=== PATIENT | male | born 1945 | race Caucasian/White ===

== ENCOUNTER 2017-02-01 10:34 | Emergency (ER) | payer OTHER ==
[~2017-02-01] VITALS: Ht 180.3 cm; Wt 88.5 kg
[~2017-02-01 10:34] MED LIST: ALEVE220 MG PO; CLARITIN10 MG PO; CO Q1060 MG PO; EFFEXOR75 MG PO; FISH OIL 1,001000 M2 PO; GLUCOSAMINE HC500 MG PO; HYDROCODONE-AP1 EAC6 PO
[2017-02-01] MEDS ORDERED: ASPIR 8181 MG PO (10:45)
[2017-02-01] MEDS ORDERED: XANAX 0.25 MG0.25 MG PO (10:45)
[2017-02-01] MEDS ORDERED: CO Q-10100 MG PO (10:45)
[2017-02-01] MEDS ORDERED: UNICOMPLEX M TA1 TA1 PO (10:46)
[2017-02-01 10:55] LABS: ABSOLUTE NEUTROPHILS 7.7 thou/uL (1.4-8.2); BASOPHILS 0.5 % (0.0-2.0); EOSINOPHILS 1.7 % (0.0-3.0); HEMATOCRIT 40.9 % (42.0-52.0); HEMOGLOBIN 14.2 gm/dL (14.0-18.0); MCH 31.3 pg (26.0-34.0); MCHC 34.7 g/dL (28.0-37.0); MCV 90.1 fL (80.0-100.0); MONOCYTES 9.5 % (1.0-8.0); PLATELET COUNT 144 thou/uL (150-400); POLYS 68.3 % (36.0-66.0); RBC 4.54 mil/uL (4.50-6.00); WBC 11.3 thou/uL (4.0-11.0)
[2017-02-01 10:58] LABS: MANUAL DIFF NO
[2017-02-01 11:05] LABS: CALCIUM 9.1 mg/dL (8.5-10.1); POTASSIUM 4.4 mmol/L (3.5-5.1)
[2017-02-01 11:10] LABS: ALBUMIN 4.3 g/dL (3.4-5.0); TOTAL BILIRUBIN 1.6 mg/dL (<0.1-1.0); TOTAL PROTEIN 7.1 g/dL (6.4-8.2)
[2017-02-01 11:47] LABS: URINE BILIRUBIN NEGATIVE (Negative); URINE BLOOD NEGATIVE (Negative); URINE COLOR YELLOW; URINE GLUCOSE-RANDOM* NEGATIVE (Negative); URINE KETONES NEGATIVE (Negative); URINE LEUKOCYTES-REFLEX NEGATIVE (Negative); URINE PROTEIN (DIPSTICK) NEGATIVE (Negative); URINE SPECIFIC GRAVITY <= 1.005 (1.003-1.035); URINE UROBILINOGEN 0.2 E.U./dl (0.2-1.0)
[2017-02-01] MEDS ORDERED: CIPROFLOXACIN500 M1 PO (12:47)
[2017-02-01] MEDS ORDERED: FLAGYL500 MG PO (12:47)
[2017-02-01] MEDS ORDERED: NORCO 5-325 TA1 EACH PO (12:48)
[2017-02-01] MEDS ORDERED: ZOFRAN ODT4 MG PO (12:48)
[2017-02-01] MEDS ORDERED: SENNA-DOCUSATE1 EACH PO (12:48)
== END 2017-02-01 13:57 | disposition home or self-care (01) ==
LOC: ER 10:34
PROVIDERS: Emergency Medicine
DX: K57.92 Diverticulitis of intestine, part unspecified, without perforation or abscess without bleeding (principal)

== ENCOUNTER → 2020-11-15 | Outpatient (CLI) | payer OTHER ==
[~2020-11-15] VITALS: Ht 180.3 cm; Wt 83.9 kg
[~2020-11-15] MED LIST changes: +ASA81BEC PO; +ASPIR 8181 MG PO; +CIPROFLOXACIN500 M1 PO; +CO Q-10100 MG PO; +CO Q-10200 MG PO; +FLAGYL500 MG PO; +NORCO 5-325 TA1 EACH PO; +OMEPRAZOLE 20 M20 M1 PO; +SENNA LAXATIVE25 MG PO; +SENNA-DOCUSATE1 EACH PO; +SERTRALINE HCL100 MG PO; +UNICOMPLEX M TA1 TA1 PO; +XANAX 0.25 MG0.25 MG PO; +ZOFRAN ODT4 MG PO
[2020-11-15 09:52] VITALS: BP 156/79
--- NOTE | 2020-11-15 10:47 | NUR ---
Pain Clinic Assessment: 1. History of Osteoarthritis: Not Applicable History of Rheumatoid Arthritis: Not Applicable 2. Height: 5 ft. 11 in. 180.3 cm. Weight: 185.0 lb. oz. 83.916 kg. Patient's BMI: 25.8 3. Vital Signs: BP: 156/79 Pulse: 52 Resp: 14 Temp: 02 Sat: 99 ECG Mon: 4. Pain Intensity: 9 5. Fall Risk: Dizziness: N Needs help standing or walking: N Fallen in the last 3 months: N Fall risk comments: 6. Patient on Blood Thinner: None 7. History of Hypertension: N 8. Opioid Therapy greater than 6 weeks: N Opiate Contract Signed: 9. Risk Assessment Tool Provided: LOW-1 10. Functional Assessment Tool: 53/70 11. Recreational Drug Use: Never Drug Type: Tobacco Use: Never Smoker Tobacco Type: Amount or Packs/day: How Many Years: Alcohol Use: No Frequency: Quant:
--- NOTE | 2020-11-16 08:04 | HPC ---
[address] [place] [address] PAIN MANAGEMENT CONSULTATION Name: PIPER PEREZ Room #: REG [facility].#: [id number] Admission: 11/15/20 Attend Phys: Johnny Flores DO Discharge: Date of : 47 Report #: [id number] THIS REPORT FOR: cc: Clinton Steele MD,Johnny Brand MD, DO ~ cc: Carlos Steele MD DATE OF SERVICE: 11/15/2020 CHIEF COMPLAINT: Low back pain, right lower extremity pain with paresthesias. HISTORY OF PRESENT ILLNESS: As you know, the patient is a 75-year-old male, who reports acute onset of low back pain, right lower extremity pain with paresthesias that began after an injury while warming up for a baseball game. The patient states he was practicing pitching, getting ready to go onto the field. When he was throwing a ball with a catcher in the bowl pin, he states that he fell over a 2-foot embankment, causing instantaneous back pain, right hip and rib pain. He did not seek evaluation initially, believing it was more of a bruising injury. He has tried [id number] medications, stretching, chiropractic manipulation and massage, all of which provided no benefit. He finally sought evaluation through his primary care physician, who evaluated the patient and determined symptoms may be related to lumbar radiculopathy and the patient was then advised to utilize rest, relaxation and stretching techniques further. When this did not improve, the patient was referred to our clinic. He comes to us today without imaging studies. The patient describes his pain today as continuous. He describes aching and sharp as the sensations. He places current pain score 9/10. Daily average at 9/10. Worst pain has been 10/10. The patient states that moving quickly exacerbate symptoms. TENS unit and massage therapy provided only transient pain improvement. He has been referred to our service and discussed treatment options for suspected lumbar radiculopathy. PAST MEDICAL HISTORY: Seasonal allergies, anxiety disorder, and gastroesophageal reflux disease. PAST SURGICAL HISTORY: Left knee surgery x3. SOCIAL HISTORY: The patient denies tobacco, IV or illicit drug use. Denies any chronic alcohol use. He is retired, retired about a 4 and half years ago, not receiving workmen's compensation nor is he trying to obtain disability benefits. He is not in litigation in regards to pain. He is unaccompanied at today's visit. REVIEW OF SYSTEMS: Positive for wearing corrective eyewear, hearing loss with tinnitus, sexual difficulty, depression, low back pain, right lower extremity [address] [address] PAIN MANAGEMENT CONSULTATION Name: PIPER PEREZ Room #: REG [facility]#: [id number] Admission: 11/15/20 Attend Phys: Johnny Flores DO Discharge: Date of : 47 Report #: [id number] pain with paresthesias. All other review of systems negative per 12-point review of systems other than those listed in history of present illness. Pain impact score 53/70, severe interference of daily activities secondary to pain. IMAGING: There is no imaging available. ALLERGIES: No known drug allergies. CURRENT MEDICATIONS: Aspirin 81 mg per day, omeprazole 20 mg per day, coenzyme Q-10 200 mg once a day, sertraline 100 mg per day, hydrocodone/acetaminophen 5/325 one tab every 8 hours p.r.n. pain, multivitamin 1 tab per day, alprazolam 0.25 mg once a day, Confluence 3 fish oil 1 tab per day, loratadine 10 mg per day. PQRS: The patient has known arthritic changes of the lumbar spine. No rheumatoid arthritis. He is placing current pain score 9/10. He is not a fall risk, but did have this fall in November. He is not on blood thinners nor is he treated for hypertension. He is not on any chronic opioids, has a low opioid addiction potential. Pain impact is 53/70, severe interference of daily activities secondary to pain. PHYSICAL EXAMINATION: VITAL SIGNS: Blood pressure 156/79, pulse of 52, respiratory rate 14 and unlabored. The patient is 99% on room air. Height 5 feet 11 inches tall, weight 185 pounds, BMI calculated 25.8. GENERAL: A well-developed, well-nourished, well-hydrated 75-year-old male appearing stated age, pain is rated today at 9/10. HEENT: Normocephalic, atraumatic. Pupils equal, round and responsive. EXTREMITIES: Show no clubbing, no cyanosis, no edema. MUSCULOSKELETAL: Lower extremity strength equal and symmetrical 5/5. Muscle bulk and tone is equal and symmetrical comparing lower extremities. Seated straight leg raising negative. Supine straight leg raising negative. Fabere's test is negative. Modified Gaenslen's positive for axial low back pain. Ankle clonus negative. Babinski is negative. Gait is normal. ASSESSMENT: 1. Recurrent lumbar radiculopathy. 2. Lumbosacral spondylosis with radiculopathy. 3. Lumbar degeneration. PLAN: 1. Based on today's physical exam and history the patient was provided, the description the patient uses in regards to pain as well as location of symptoms, it would appear he is suffering from recurrent lumbar radicular symptoms. The patient apparently had symptoms like this in the past, underwent an epidural [facility] [address] [place] [address] PAIN MANAGEMENT CONSULTATION Name: PIPER PEREZ Room #: REG [facility] Juan Luis#: [id number] Admission: 11/15/20 Attend Phys: Johnny Flores DO Discharge: Date of : 46 Report #: [id number] injection with good benefit. He states the last time he was treated for something like this was in 2016. He has been doing well until recently after the fall in November. He has been referred to our clinic to discuss options for treatment. The following was discussed with the patient today. We discussed physical therapy, stretching exercises and core strengthening as a treatment approach. We discussed suggestions and treatment to include amitriptyline, nortriptyline, Cymbalta, Lyrica and gabapentin. These would all be provided with suggestions of the primary care team to initiate. We also discussed lumbar epidural injections under fluoroscopic guidance, spinal cord stimulator therapy and surgical options. After reviewing risks and benefits of all proposed treatment options, the patient chose to begin with a lumbar epidural injection under fluoroscopic guidance. 2. The patient was advised the risks and the benefits of a lumbar epidural injection. These risks include but are not necessarily limited to bleeding, bruising, infection, worsening pain, no relief of pain, also risk of temporary or permanent muscle weakness, temporary or permanent nerve damage, possible paralysis, post-dural puncture headache and . The patient states understood and wished to proceed. 3. No medication changes made at today's visit. The patient will continue current medical therapy as prior prescribed. 4. The patient will return to our clinic in 30 days. Discuss the possibility of undergoing next in the series of epidural injections if necessary. PROCEDURE NOTE DESCRIPTION OF PROCEDURE: L5-S1 right paramedian epidural steroid injection under fluoroscopic guidance. This is the first procedure of the first series that the patient is undergoing. After obtaining written consent, the patient was taken back to the fluoroscopy suite, placed in a prone position with pillow under the abdomen to decrease lumbar lordosis. The skin overlying the lumbosacral area was then prepped and draped in aseptic fashion. The L5-S1 vertebral interspace was then identified by AP fluoroscopy. The skin and subcutaneous tissue overlying the target site of injection was anesthetized with 3 mL 1% lidocaine. A 20-gauge 3-1/2 inch. Tuohy needle was then advanced under fluoroscopic guidance towards the epidural space using a right paramedian approach. The epidural space was identified using loss of resistance to air technique. After negative aspiration for heme or cerebrospinal fluid, a total of 1 mL of Omnipaque was injected. A lumbar epidurogram was confirmed using both AP and lateral fluoroscopy. After negative aspiration for heme or cerebrospinal fluid, 5 mL of a solution containing 2 mL 40 mg per mL 80 mg total triamcinolone along with 3 mL of lidocaine 1% was injected in increments. Contrast spread was noted in the posterior epidural space. The needle was then retracted approximately [address] [address] PAIN MANAGEMENT CONSULTATION Name: ANAPIPER Stefany Room #: REG [facility]#: [id number] Admission: 11/15/20 Attend Phys: Johnny Flores DO Discharge: Date of : 46 Report #: [id number] and needle tract flushed with 1 mL of 1% lidocaine. Needle was then removed. There were no apparent sensory or motor deficits in the lower extremity following the procedure. A sterile bandage was placed over the injection site. The heart rate, pulse, oximetry and blood pressure were continuously monitored after the procedure. There were no apparent complications. The patient tolerated the procedure well and was carefully escorted to the recovery room in stable condition. There were no apparent complications. After meeting discharge criteria, the patient was then discharged home. <ELECTRONICALLY SIGNED> By: Johnny Flores DO 11/16/20 [id number] Johnny Flores DO /nt
== END | disposition home or self-care (01) ==
LOC: PAIN 07:18
PROVIDERS: ATTEND Anesthesiology Pain Medicine
DX: M51.16 Intervertebral disc disorders with radiculopathy, lumbar region (principal); M47.27 Other spondylosis with radiculopathy, lumbosacral region; I10 Essential (primary) hypertension; F41.9 Anxiety disorder, unspecified; K21.9 Gastro-esophageal reflux disease without esophagitis; Z98.890 Other specified postprocedural states; Z79.899 Other long term (current) drug therapy; Z79.82 Long term (current) use of aspirin

== ENCOUNTER → 2021-03-14 | Outpatient (CLI) | payer OTHER ==
[~2021-03-14] VITALS: Ht 180.3 cm; Wt 80.7 kg
[2021-03-14 09:55] VITALS: BP 145/76
--- NOTE | 2021-03-14 10:12 | NUR ---
Pain Clinic Assessment: 1. History of Osteoarthritis: Not Applicable History of Rheumatoid Arthritis: Not Applicable 2. Height: 5 ft. 11 in. 180.3 cm. Weight: 178.0 lb. oz. 80.740 kg. Patient's BMI: 24.8 3. Vital Signs: BP: 145/76 Pulse: 80 Resp: 14 Temp: 02 Sat: 100 ECG Mon: 4. Pain Intensity: 9 5. Fall Risk: Dizziness: N Needs help standing or walking: N Fallen in the last 3 months: N Fall risk comments: 6. Patient on Blood Thinner: None 7. History of Hypertension: N 8. Opioid Therapy greater than 6 weeks: N Opiate Contract Signed: 9. Risk Assessment Tool Provided: LOW-1 10. Functional Assessment Tool: 53/70 11. Recreational Drug Use: Never Drug Type: Tobacco Use: Never Smoker Tobacco Type: Amount or Packs/day: How Many Years: Alcohol Use: No Frequency: Quant:
--- NOTE | 2021-03-14 15:06 | HPC ---
[address] [address] PAIN MANAGEMENT CONSULTATION Name: PIPER PEREZ Room #: REG [facility].#: [id number] Admission: 03/14/21 Attend Phys: Johnny Flores DO Discharge: Date of : 47 Report #: [id number] THIS REPORT FOR: cc: Clinton Steele MD,Johnny Brand MD, DO ~ cc: Carlos Steele MD DATE OF SERVICE: 03/14/2021 CHIEF COMPLAINT: Low back pain, right lower extremity pain with paresthesias. HISTORY OF PRESENT ILLNESS: As you know, the patient is a very pleasant 76-year-old male who was referred to our clinic after acute low back pain, right lower extremity pain began after an injury while warming up for a baseball game. He trialed conservative treatment, which failed to provide benefit. He sought evaluation through his primary care physician, Dr. Clinton Steele, who then referred the patient on for imaging. The findings were such the patient was then referred to our clinic to discuss interventional treatment options before considering surgical options. The patient was seen in consultation 11/15/2020 where he underwent a lumbar epidural injection under fluoroscopic guidance. He states that injection provided improvement in symptoms of greater than 90% until just recently where his symptoms returned. He states he was up to bat when he swang at a pitch, he then felt instantaneous low back pain and right lower extremity pain radiating all the way down to his foot. Pain continued to progress. He trialed conservative treatment, rest, relaxation, but did not notice much in the way of improvement. He made today's appointment to discuss the next in the series of epidural injections to address his ongoing pain that he rates at 9/10 involving the low back, right buttock and radiating down the leg. He has had no changes in medication management since our last visit that would preclude him from undergoing the next in the series of epidural injections if deemed necessary. ALLERGIES: No known drug allergies. CURRENT MEDICATIONS: Aspirin 81 mg per day, omeprazole 20 mg per day, coenzyme Q10 200 mg once a day, sertraline 100 mg once a day, multivitamin 1 tab per day, alprazolam 0.25 mg p.r.n., omega-3 fish oil 1 tab per day, loratadine 10 mg p.r.n. SOCIAL HISTORY: The patient denies tobacco. Denies IV or illicit drug use. Admits to occasional alcohol beverage. He is retired, retired about 4-1/2 years ago, not working, not receiving Workmen's Compensation, unaccompanied today. IMAGING: No new imaging available. PQRS: The patient has known arthritic changes of the lumbar spine. No [address] [address] PAIN MANAGEMENT CONSULTATION Name: PIPER PEREZ Room #: REG [facility] Juan Luis#: [id number] Admission: 03/14/21 Attend Phys: Johnny Flores DO Discharge: Date of : 47 Report #: [id number] rheumatoid arthritis. He is placing pain intensity today at 9/10. He is not a fall risk, has not had a fall in the last 3 months. He is on blood thinners nor is he treated for hypertension. He is on no opioid medications, has a low opioid addiction potential and pain impact is 50/70, severe interference of daily activities secondary to pain. PHYSICAL EXAMINATION: VITAL SIGNS: Blood pressure 145/76, pulse 80, respiratory rate 14 and unlabored. The patient 100% on room air. Height 5 feet 11 inches tall, weight 178 pounds, BMI calculated 24.8. GENERAL: Well-developed, well-nourished, well-hydrated 76-year-old male appearing stated age, pain is rated today 9/10. HEENT: Normocephalic, atraumatic. Pupils are round and responsive. He is wearing a mask in compliance with COVID-19 regulations. EXTREMITIES: Show no clubbing, no cyanosis. No appreciable edema. MUSCULOSKELETAL: Lower extremity strength equal and symmetrical 5/5. Muscle bulk and tone remain symmetrical in lower extremities bilaterally. Seated straight leg raising remains negative. Supine straight leg raising is positive on the right. Jim's test is negative. Gait is mildly antalgic favoring right lower extremity over the left due to pain. ASSESSMENT: 1. Lumbar radiculopathy. 2. Lumbosacral spondylosis with radiculopathy. 3. Lumbar degeneration. PLAN: 1. The patient returns today in followup visit having noted excellent benefit with the epidural injection provided in November. In fact, he was receiving up to 90% improvement in overall pain until 2 weeks ago when his symptoms reoccurred. The patient states he was up to bat and felt pain radiating into his buttock and right leg after swinging on a pitch. He states the pain intensified from that point forward. He has suffered no other injury or trauma. He trialed conservative treatment, but this did not improve his symptoms. He made today's appointment to undergo lumbar epidural injection under fluoroscopic guidance. The patient and I discussed all the different treatment options and we agreed that a lumbar epidural injection would be the most effective way of treating his symptoms today. He has been advised risks and benefits of the procedure, states understood and wished to proceed. 2. No medication changes made at today's visit. The patient will continue current medical therapy as prior prescribed. 3. We plan to see the patient back in followup visit on an as needed basis for the next in the series of lumbar epidural injections. We are hopeful the patient will once again see good and prolonged benefit with the epidural injection provided today. [address] [address] PAIN MANAGEMENT CONSULTATION Name: PIPER PEREZ Room #: REG [facility]#: [id number] Admission: 03/14/21 Attend Phys: Johnny Flores DO Discharge: Date of : 47 Report #: [id number] PROCEDURE NOTE DESCRIPTION OF PROCEDURE: L5-S1 right paramedian epidural steroid injection under fluoroscopic guidance. This is the second procedure of the first series that the patient is undergoing. After obtaining written consent, the patient was taken back to the fluoroscopy suite, placed in a prone position with pillow under the abdomen to decrease lumbar lordosis. The skin overlying the lumbosacral area was then prepped and draped in aseptic fashion. The L5-S1 vertebral interspace was then identified by AP fluoroscopy. The skin and subcutaneous tissue overlying the target site of injection was anesthetized with 3 mL 1% lidocaine. A 20-gauge, 3-1/2-inch Tuohy needle was then advanced under fluoroscopic guidance towards the epidural space using a right paramedian approach. The epidural space was identified using loss of resistance to air technique. After negative aspiration for heme or cerebrospinal fluid, a total of 1 mL of Omnipaque was injected. A lumbar epidurogram was confirmed using both AP and lateral fluoroscopy. After negative aspiration for heme or cerebrospinal fluid, 5 mL of a solution containing 2 mL, 40 mg per mL, 80 mg total triamcinolone along with 3 mL of lidocaine 1% was injected in increments. Contrast spread was noted in the post-epidural space. The needle was then retracted approximately half way and needle tract flushed with 1 mL of 1% lidocaine. Needle was then removed. There were no apparent sensory or motor deficits in the lower extremity following the procedure. A sterile bandage was placed over the injection site. The heart rate, pulse, oximetry and blood pressure were continuously monitored after the procedure. There were no apparent complications. The patient tolerated the procedure well and was carefully escorted to the recovery room in stable condition. There were no apparent complications. After meeting discharge criteria, the patient was then discharged home. <ELECTRONICALLY SIGNED> By: Johnny Flores DO 03/14/21 [id number] Johnny Flores DO /nt
== END | disposition home or self-care (01) ==
LOC: PAIN 07:17
PROVIDERS: ATTEND Anesthesiology Pain Medicine
DX: M51.16 Intervertebral disc disorders with radiculopathy, lumbar region (principal); M47.27 Other spondylosis with radiculopathy, lumbosacral region; G89.29 Other chronic pain; Z98.890 Other specified postprocedural states; Z79.899 Other long term (current) drug therapy